=== PATIENT | male | born 1990 | race Hispanic/Latino ===

== ENCOUNTER 2018-03-13 16:37 | Emergency (ER) | payer SELFPAY ==
[2018-03-13] MEDS ORDERED: BACTRIM DS1 TAB PO (16:51)
[2018-03-13] MEDS ORDERED: CEPHALEXIN500 MG PO (16:51)
[2018-03-13 17:20] VITALS: BP 131/78
== END 2018-03-13 17:20 | disposition home or self-care (01) | DRG 603 ==
LOC: ED 16:37
PROC: 0H9KXZZ Drainage of Right Lower Leg Skin, External Approach (ICD-10-PCS; principal; 2018-03-13)
DX: L02.415 Cutaneous abscess of right lower limb (principal)

== ENCOUNTER 2018-03-14 19:25 | Emergency (ER) | payer SELFPAY ==
[~2018-03-14] VITALS: Ht 170.2 cm; Wt 75.0 kg
[~2018-03-14 19:25] MED LIST: BACTRIM DS1 TAB PO; CEPHALEXIN500 MG PO
[2018-03-14 20:05] VITALS: BP 140/77
== END 2018-03-14 20:05 | disposition home or self-care (01) | DRG 951 ==
LOC: ED 19:25
DX: Z48.01 Encounter for change or removal of surgical wound dressing (principal)

== ENCOUNTER 2018-03-17 09:17 | Emergency (ER) | payer SELFPAY ==
[~2018-03-17] VITALS: Ht 170.2 cm; Wt 60.0 kg
[2018-03-17] MEDS ORDERED: CEPHALEXIN500 M1 PO (10:20)
[2018-03-17] MEDS ORDERED: BACTRIM DS1 TAB PO (10:20)
[2018-03-17 10:27] VITALS: BP 120/68
== END 2018-03-17 11:03 | disposition home or self-care (01) | DRG 951 ==
LOC: ED 09:17
DX: Z48.01 Encounter for change or removal of surgical wound dressing (principal)

== ENCOUNTER 2018-03-18 14:27 | Emergency (ER) | payer SELFPAY ==
[~2018-03-18] VITALS: Ht 170.2 cm; Wt 65.0 kg
[~2018-03-18 14:27] MED LIST changes: +CEPHALEXIN500 M1 PO
[2018-03-18 15:20] VITALS: BP 121/61
== END 2018-03-18 15:20 | disposition home or self-care (01) | DRG 951 ==
LOC: ED 14:27
DX: Z48.01 Encounter for change or removal of surgical wound dressing (principal)

== ENCOUNTER 2018-03-23 17:48 | Emergency (ER) | payer SELFPAY ==
[~2018-03-23] VITALS: Ht 170.2 cm; Wt 56.0 kg
[2018-03-23] MEDS ORDERED: MUPIROCIN21 TOP (18:35)
[2018-03-23 18:52] VITALS: BP 131/87
== END 2018-03-23 18:52 | disposition home or self-care (01) | DRG 951 ==
LOC: ED 17:48
DX: Z48.01 Encounter for change or removal of surgical wound dressing (principal)